=== PATIENT | female | born 1965 | race Caucasian/White ===

== ENCOUNTER 2018-01-15 13:11 | Emergency (ER) | payer MEDICARE, OTHER ==
[2018-01-15 13:33] VITALS: BP 149/86; PULSE 77; RESP 18; TEMP 97.9
--- NOTE | 2018-01-15 13:50 | ED ---
General Adult HPI - General Chief complaint: Extremity Injury, Lower Stated complaint: right foot pain Time Seen by Provider: 01/15/18 13:23 Source: patient, RN notes reviewed Mode of arrival: wheelchair Limitations: physical limitation - History of Present Illness Initial comments: Patient's a 52-year-old female presented to the emergency room today with a chief complaint of injury to the right foot that occurred 3 days ago. She says she was out doing yard work 3 days ago when she tripped or slipped. She states that she's had tenderness and pain to the ball of the right foot since that time. States it's worse with bearing weight and ambulation. Patient does admit to a burning sensation down into the toes. She denies any other complaints or symptoms. Patient denies any recent fever, chills, shortness of breath, chest pain, back pain, abdominal pain, nausea or vomiting, headaches or visual changes, or any other complaints. - Related Data Allergies Allergy/AdvReac Type Severity Reaction Status Date / Time aspirin Allergy Anaphylaxis Verified 01/15/18 13:35 ibuprofen Allergy Anaphylaxis Verified 01/15/18 13:35 pregabalin [From Lyrica] Allergy Anaphylaxis Verified 01/15/18 13:35 tramadol [From Ultram] Allergy Anaphylaxis Verified 01/15/18 13:35 amoxicillin [From Augmentin] AdvReac Nausea & Verified 01/15/18 13:35 Vomiting clavulanic acid AdvReac Nausea & Verified 01/15/18 13:35 [From Augmentin] Vomiting Review of Systems ROS Statement: Those systems with pertinent positive or pertinent negative responses have been documented in the HPI. ROS Other: All systems not noted in ROS Statement are negative. Past Medical History Past Medical History: No Reported History History of Any Multi-Drug Resistant Organisms: None Reported Past Surgical History: Back Surgery, Section, Hernia Repair, Hysterectomy, Orthopedic Surgery, Tubal Ligation Additional Past Surgical History / Comment(s): left knee, left foot, right shoulder, face reconstructions, tummy tuck, orbital surgery Past Psychological History: No Psychological Hx Reported, Anxiety Smoking Status: Current every day smoker Past Alcohol Use History: None Reported Past Drug Use History: None Reported General Exam - General Exam Comments Initial Comments: General: The patient is awake and alert, in no distress, and does not appear acutely ill. Eye: Pupils are equal, round and reactive to light. Extra-ocular movements are intact. No nystagmus. There is normal conjunctiva bilaterally. No signs of icterus. Ears, nose, mouth and throat: There are moist mucous membranes and no oral lesions. Neck: The neck is supple, there is no tenderness or JVD. Musculoskeletal: Normal appearance of the right foot no obvious deformity. Does have tenderness over the distal first through fifth metatarsals. Sensation intact. Strength 5/5. Pulses equal bilaterally 2+. Neurological: A&O x 3. CN II-XII intact, There are no obvious motor or sensory deficits. Coordination appears grossly intact. Speech is normal. Skin: Skin is warm and dry and no rashes or lesions are noted. Psychiatric: Cooperative, appropriate mood & affect, normal judgment. Limitations: physical limitation Course Vital Signs 01/15/18 13:26 Temperature 97.9 F Pulse Rate 77 Respiratory 18 Rate Blood Pressure 149/86 O2 Sat by Pulse 97 Oximetry Medical Decision Making - Medical Decision Making X-ray reviewed negative for any acute fracture dislocation. Results were discussed with patient. Patient's advised to ice elevate the affected area. Patient is advised follow-up with orthopedics if symptoms persist. Advised return for any other concerns. Disposition Clinical Impression: Foot sprain Disposition: HOME SELF-CARE Condition: Good Instructions: Foot Sprain (ED) Additional Instructions: Please continue to ice elevate the affected area at least 4 times a day for 20 minutes at a time. Please use Tylenol/ibuprofen for pain. Please follow-up in 7-10 days for repeat x-rays if symptoms persist. Please return to emergency room for any other concerns. Is patient prescribed a controlled substance at d/c from ED?: No Referrals: Suresh Pate DO [Primary Care Provider] - 1-2 days Femi Basurto MD [Medical Doctor] - 1-2 days Time of Disposition: 14:07
--- NOTE | 2018-01-15 13:56 | XR ---
EXAMINATION TYPE: XR foot complete RT , 3 VIEWS DATE OF EXAM ORDERED: 01/15/2018 HISTORY: Pain. COMPARISON: None. FINDINGS: Lucency projects over the distal aspect of the proximal phalanx of the right great toe. No cortical infraction is seen. No other fractures are seen. There is a plantar calcaneal spur. IMPRESSION: NO ACUTE OSSEOUS LESION.
== END 2018-01-15 14:18 | disposition home or self-care (01) ==
LOC: EC 13:11
DX: S93.601A Unspecified sprain of right foot, initial encounter (principal); F17.200 Nicotine dependence, unspecified, uncomplicated; Z88.6 Allergy status to analgesic agent; Z88.8 Allergy status to other drugs, medicaments and biological substances; Z88.0 Allergy status to penicillin; W01.0XXA Fall on same level from slipping, tripping and stumbling without subsequent striking against object, initial encounter; Y93.89 Activity, other specified; Y92.009 Unspecified place in unspecified non-institutional (private) residence as the place of occurrence of the external cause
CPT/HCPCS: 99283

== ENCOUNTER 2018-05-17 17:43 | Emergency (ER) | payer MEDICARE, OTHER ==
[2018-05-17 18:05] VITALS: RESP 18
--- NOTE | 2018-05-17 18:37 | ED ---
General Adult HPI - General Chief complaint: ENT Stated complaint: right ear pain Source: patient, RN notes reviewed Mode of arrival: ambulatory Limitations: no limitations - History of Present Illness Initial comments: Patient is a 53-year-old female who presents the emergency department with complaint of right ear pain for 2 weeks. She reports she has been using neomycin, polymyxin B, hydrocortisone otic drops for 4 days from her PCP without improvement. Patient denies any recent fever, chills, shortness of breath, chest pain, back pain, abdominal pain, nausea or vomiting, numbness or tingling, headaches or visual changes, or any other complaints. - Related Data Previous Rx's Medication Instructions Recorded Azithromycin [Zithromax Z-pack] 0 mg PO DIRECTED #6 tab 05/17/18 Ciprofloxacin-Hc Otic Susp [Cipro 3 drops RIGHT EAR BID 10 Days 05/17/18 Hc Otic Suspension] Allergies Allergy/AdvReac Type Severity Reaction Status Date / Time aspirin Allergy Anaphylaxis Verified 05/17/18 18:02 ibuprofen Allergy Anaphylaxis Verified 05/17/18 18:02 pregabalin [From Lyrica] Allergy Anaphylaxis Verified 05/17/18 18:02 tramadol [From Ultram] Allergy Anaphylaxis Verified 05/17/18 18:02 amoxicillin [From Augmentin] AdvReac Nausea & Verified 05/17/18 18:02 Vomiting clavulanic acid AdvReac Nausea & Verified 05/17/18 18:02 [From Augmentin] Vomiting Review of Systems ROS Statement: Those systems with pertinent positive or pertinent negative responses have been documented in the HPI. ROS Other: All systems not noted in ROS Statement are negative. Past Medical History Past Medical History: No Reported History History of Any Multi-Drug Resistant Organisms: None Reported Past Surgical History: Back Surgery, Section, Hernia Repair, Hysterectomy, Orthopedic Surgery, Tubal Ligation Additional Past Surgical History / Comment(s): left knee, left foot, right shoulder, face reconstructions, tummy tuck, orbital surgery Past Psychological History: Anxiety Smoking Status: Current every day smoker Past Alcohol Use History: None Reported Past Drug Use History: None Reported General Exam Limitations: no limitations General appearance: alert, in no apparent distress Head exam: Present: atraumatic, normocephalic Eye exam: Present: normal appearance, PERRL ENT exam: Present: normal oropharynx, other (Right external ear is swollen and tender to touch.) Respiratory exam: Present: normal lung sounds bilaterally. Absent: wheezes, rales, rhonchi Cardiovascular Exam: Present: regular rate, normal rhythm Neurological exam: Present: alert, oriented X3 Skin exam: Present: warm, dry Course Vital Signs 05/17/18 05/17/18 18:02 20:19 Temperature 98 F 97.3 F L Pulse Rate 93 79 Respiratory 18 18 Rate Blood Pressure 106/77 141/70 O2 Sat by Pulse 100 98 Oximetry Medical Decision Making - Medical Decision Making Will prescribe azithromycin and ciprofloxacin hydrocortisone otic drops. Case discussed in detail with attending physician Dr. Kelly. Disposition Clinical Impression: Otitis externa Disposition: HOME SELF-CARE Condition: Good Instructions (If sedation given, give patient instructions): Otitis Externa (ED ) Additional Instructions: Follow-up with your PCP in 1 to 2 days. Please take antibiotics as prescribed. Return to the emergency department if your symptoms worsen or other concerns. Prescriptions: Azithromycin [Zithromax Z-pack] 0 mg PO DIRECTED #6 tab Ciprofloxacin-Hc Otic Susp [Cipro Hc Otic Suspension] 3 drops RIGHT EAR BID 10 Days Is patient prescribed a controlled substance at d/c from ED?: No Referrals: Suresh Pate DO [Primary Care Provider] - 1-2 days Time of Disposition: 20:12
[2018-05-17 20:20] VITALS: BP 141/70; PULSE 79; TEMP 97.3
== END 2018-05-17 20:20 | disposition home or self-care (01) ==
LOC: EC 17:43
DX: H60.91 Unspecified otitis externa, right ear (principal); F17.200 Nicotine dependence, unspecified, uncomplicated; Z88.6 Allergy status to analgesic agent; Z88.8 Allergy status to other drugs, medicaments and biological substances; Z88.5 Allergy status to narcotic agent; Z88.0 Allergy status to penicillin
CPT/HCPCS: 99282

== ENCOUNTER 2021-10-31 16:25 | Emergency (ER) | payer MEDICARE, OTHER ==
[2021-10-31 16:43] VITALS: TEMP 98.1
--- NOTE | 2021-10-31 17:03 | XR ---
EXAMINATION TYPE: XR chest 2V DATE OF EXAM: 10/31/2021 4:54 PM COMPARISON: None TECHNIQUE: XR chest 2V Frontal and lateral views of the chest. CLINICAL INDICATION:Female, 56 years old with history of left sided rib pain; FINDINGS: Lungs/Pleura: There is no evidence of pleural effusion, focal consolidation, or pneumothorax. Pulmonary vascularity: Unremarkable. Heart/mediastinum: Cardiomediastinal silhouette is unremarkable. Musculoskeletal: No acute osseous pathology. Postsurgical changes with fixation plate involving the d istal right clavicle. IMPRESSION: No acute cardiopulmonary disease/process.
[2021-10-31] MEDS ORDERED: predniSONE 50 MG TAB PO STA (18:57)
[2021-10-31] MEDS ORDERED: LIDOCAINE 5% PATCH TOPICAL STA (18:57)
--- NOTE | 2021-10-31 19:10 | ED ---
General Adult HPI - General Chief complaint: Back Pain/Injury Stated complaint: Rib pain Time Seen by Provider: 10/31/21 18:29 Source: patient, RN notes reviewed Mode of arrival: ambulatory Limitations: no limitations - History of Present Illness Initial comments: 56-year-old female presents to the emergency department for evaluation of left- sided rib pain that extends from below the left breast to the left scapula. Patient states pain is worsened with deep breathing, coughing, movement of the upper extremities, and side-lying. Has mild right-sided rib/chest wall pain as well. Patient reports onset of ALLERGIES and coughing 3 weeks ago and associates the discomfort with this. States she takes morphine and/or Corona at home on a regular basis for chronic back pain. Has had no injury, trauma, or fall. No redness, rash, vesicles, or burning discomfort in painful area. Denies fever, chills, headache, dizziness, difficulty breathing, palpitations, racing heart, nausea, vomiting and abdominal pain, flank pain, dysuria, or hematuria. - Related Data Previous Rx's Medication Instructions Recorded Azithromycin [Zithromax Z-pack (6 0 mg PO DIRECTED #6 tab 05/17/18 tabs)] Ciprofloxacin-Hc Otic Susp [Cipro 3 drops RIGHT EAR BID 10 Days 05/17/18 Hc Otic Suspension] predniSONE 50 mg PO DAILY #4 tab 10/31/21 Allergies Allergy/AdvReac Type Severity Reaction Status Date / Time aspirin Allergy Anaphylaxis Verified 10/31/21 16:43 ibuprofen Allergy Anaphylaxis Verified 10/31/21 16:43 pregabalin [From Lyrica] Allergy Anaphylaxis Verified 10/31/21 16:43 tramadol [From Ultram] Allergy Anaphylaxis Verified 10/31/21 16:43 amoxicillin [From Augmentin] AdvReac Nausea & Verified 10/31/21 16:43 Vomiting clavulanic acid AdvReac Nausea & Verified 10/31/21 16:43 [From Augmentin] Vomiting Review of Systems ROS Statement: Those systems with pertinent positive or pertinent negative responses have been documented in the HPI. ROS Other: All systems not noted in ROS Statement are negative. Past Medical History Past Medical History: No Reported History History of Any Multi-Drug Resistant Organisms: None Reported Past Surgical History: Back Surgery, Section, Hernia Repair, Hysterectomy, Orthopedic Surgery, Tubal Ligation Additional Past Surgical History / Comment(s): left knee, left foot, right shoulder, face reconstructions, tummy tuck, orbital surgery Past Psychological History: Anxiety Smoking Status: Former smoker Past Alcohol Use History: None Reported Past Drug Use History: None Reported General Exam Limitations: no limitations General appearance: alert, in distress (Well-developed, well-nourished female in mild distress related to pain. Initial temperature 98.1, pulse 92, respirations 18, blood pressure 137/83, pulse ox 96% on room air.) ENT exam: Present: normal exam, normal oropharynx, mucous membranes moist Neck exam: Present: normal inspection, full ROM. Absent: tenderness, lymphadenopathy Respiratory exam: Present: normal lung sounds bilaterally, chest wall tenderness (Left anterior chest wall tenderness with gentle fingertip palpation at ribs 6-8 extending from inframammary fold extending back to the scapula. No crepitus, deformity, contusion, erythema, rash, or vesicles noted to the chest wall.), other (Symmetrical rise and fall of the chest). Absent: respiratory distress, wheezes, rales, rhonchi, stridor, accessory muscle use, decreased breath sounds, prolonged expiratory Cardiovascular Exam: Present: regular rate, normal rhythm, normal heart sounds. Absent: systolic murmur, diastolic murmur, rubs, gallop, clicks GI/Abdominal exam: Present: soft, normal bowel sounds. Absent: distended, tenderness, guarding, rebound, rigid Neurological exam: Present: alert, oriented X3 Psychiatric exam: Present: anxious Skin exam: Present: warm, dry, intact, normal color. Absent: rash Course Vital Signs 10/31/21 10/31/21 10/31/21 16:38 19:04 20:36 Temperature 98.1 F Pulse Rate 92 79 80 Respiratory 18 20 18 Rate Blood Pressure 137/83 149/96 136/86 O2 Sat by Pulse 96 96 99 Oximetry - Reevaluation(s) Reevaluation #1: 10/31/21 19:50 Upon reassessment, patient continues to complain of pain, feeling like the lidocaine patch has not been helpful. Discussed the likelihood that this is inflammatory, costochondritis, but that with anaphylactic ALLERGIES to NSAIDs does limit options for treatment. Medical Decision Making - Medical Decision Making This is a 56-year-old female with a history of chronic back pain who takes Corona and morphine daily presents to the emergency department for evaluation of left anterior chest wall pain that extends to the left scapula. Also has mild right sided rib pain. Upon exam, patient is well-appearing with moderate discomfort. Her pain is worsened with deep inspiration, movement of the extremities, and palpation of the chest wall. She does not have any concerning findings for cardiac or pulmonary etiologies. There is no erythema or rash. Chest x-ray was unremarkable. EKG shows normal sinus rhythm with no ectopy. Lidocaine patch applied with minimal change. Patient is given Dilaudid, Zofran, and prednisone with some improvement. She does have an anaphylactic ALLERGY to NSAIDs. She will be discharged home to continue her home medication regimen in addition to prednisone. Instructed to follow-up with her PCP for a recheck this week. Return parameters were discussed in detail. Patient verbalizes understanding and agrees with this plan. Attending: Oscar. - EKG Data EKG shows normal: sinus rhythm Rate: normal EKG Comments: EKG obtained at 1911 shows sinus rhythm with ventricular rate 76, [place] interval 173, QRS duration 86, QT/QTc 401/431. Interpretation normal ECG. - Radiology Data Radiology results: report reviewed, image reviewed Two-view chest x-ray was obtained. Report was reviewed in its entirety. Impression per Dr. Siddiqui is no acute cardiopulmonary disease/process. Disposition Clinical Impression: Costochondritis, acute Disposition: HOME SELF-CARE Condition: Stable Instructions (If sedation given, give patient instructions): Costochondritis (ED) Additional Instructions: Continue taking your home medications as prescribed. Remove lidocaine patch at 8 AM. Minimize exposure to irritants and allergens as able. Call your PCP on Tuesday to schedule a follow-up appointment. Return to the emergency department with any new, worsening, or concerning symptoms. Prescriptions: predniSONE 50 mg PO DAILY #4 tab Is patient prescribed a controlled substance at d/c from ED?: No Referrals: Suresh Pate DO [Primary Care Provider] - 1-2 days Time of Disposition: 20:02
[2021-10-31] MEDS ORDERED: ONDANSETRON ODT 4 MG TAB PO STA (19:55)
[2021-10-31] MEDS ORDERED: HYDROmorphone 1 MG/ML 1 ML SYRINGE IM STA (19:55)
[2021-10-31 20:37] VITALS: BP 136/86; PULSE 80; RESP 18
== END 2021-10-31 20:39 | disposition home or self-care (01) ==
LOC: EC 16:25
DX: M94.0 Chondrocostal junction syndrome [Tietze] (principal); Z87.891 Personal history of nicotine dependence; Z88.6 Allergy status to analgesic agent; Z88.8 Allergy status to other drugs, medicaments and biological substances; Z88.5 Allergy status to narcotic agent; Z88.0 Allergy status to penicillin
CPT/HCPCS: 93005; 71046; 99283; 96372; J1170; J7512

== ENCOUNTER 2021-11-14 13:51 | Emergency (ER) | payer MEDICARE, OTHER ==
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
--- NOTE | 2021-11-14 15:27 | XR ---
EXAMINATION TYPE: XR foot complete LT DATE OF EXAM: 11/14/2021 COMPARISON: NONE HISTORY: Foot pain TECHNIQUE: 3 views FINDINGS: Metatarsals are intact. The toes appear intact. There is some degenerative spurring in the mid foot with deformity of the navicular and osteosclerosis. There is a mild pes planus. There is sma ll plantar calcaneal spurring. There is previous surgery on the anterior aspect of the midfoot. IMPRESSION: No acute bony abnormality. 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 Navicular deformity.
[2021-11-14 15:59] VITALS: BP 130/78; PULSE 69; RESP 16; TEMP 98
== END 2021-11-14 15:59 | disposition home or self-care (01) ==
LOC: EC 13:51
DX: S90.32XA Contusion of left foot, initial encounter (principal); T74.11XA Adult physical abuse, confirmed, initial encounter; Z87.891 Personal history of nicotine dependence; Z88.6 Allergy status to analgesic agent; Z88.5 Allergy status to narcotic agent; Z88.8 Allergy status to other drugs, medicaments and biological substances; X58.XXXA Exposure to other specified factors, initial encounter; Y09 Assault by unspecified means
CPT/HCPCS: 70450; 71046; 72125

== ENCOUNTER 2022-06-27 20:22 | Emergency (ER) | payer MEDICARE, OTHER ==
[2022-06-27 20:37] VITALS: BP 124/82; PULSE 90; RESP 17; TEMP 98.7
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
[2022-06-27] MEDS ORDERED: MORPHINE SULFATE 4 MG/ML SYRINGE IM STA (21:19)
--- NOTE | 2022-06-27 21:24 | XR ---
EXAMINATION TYPE: XR ankle complete LT DATE OF EXAM: 06/27/2022 COMPARISON: NONE HISTORY: Pain TECHNIQUE: 3 view FINDINGS: Ankle mortise is anatomic. There is spurring at the talonavicular joint with deformity of t he navicular bone and anterior spurring. There is plantar calcaneal spurring. No fracture seen. 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 No evidence of ankle fracture.
--- NOTE | 2022-06-27 21:26 | XR ---
EXAMINATION TYPE: XR knee complete LT DATE OF EXAM: 06/27/2022 COMPARISON: NONE HISTORY: Pain TECHNIQUE: 3 views FINDINGS: There is no fracture nor dislocation. Joint spaces are normal. No sign of knee joint effusi on. IMPRESSION: Negative left knee exam. No fracture.
== END 2022-06-27 22:39 | disposition home or self-care (01) ==
LOC: EC 20:22
DX: S83.92XA Sprain of unspecified site of left knee, initial encounter (principal); F41.9 Anxiety disorder, unspecified; Z79.899 Other long term (current) drug therapy; Z87.891 Personal history of nicotine dependence; Z88.0 Allergy status to penicillin; Z88.1 Allergy status to other antibiotic agents; Z88.5 Allergy status to narcotic agent; Z88.6 Allergy status to analgesic agent; Z88.8 Allergy status to other drugs, medicaments and biological substances; W22.8XXA Striking against or struck by other objects, initial encounter
CPT/HCPCS: 73562; 73610; 99283; 96372; L1830 ×2; J2270

== ENCOUNTER 2023-10-22 12:11 | Emergency (ER) | payer OTHER ==
[2023-10-22 12:29] VITALS: TEMP 97.9
[2023-10-22] MEDS: HYDROmorphone 1 MG/ML 1 ML SYRINGE IM STA ×2 (12:55→13:01)
--- NOTE | 2023-10-22 12:57 | ED ---
Fall HPI - General Chief Complaint: Fall Stated Complaint: Fall-L arm injury Time Seen by Provider: 10/22/23 12:25 Source: patient, RN notes reviewed Mode of arrival: wheelchair Limitations: no limitations - History of Present Illness Initial Comments: 58-year-old female presents emergency department chief complaint of a fall. Patient states she was letting her dog out states that he turned around and became lightheaded and passed out. Patient dates that she this happened she just moved too quickly. She denies any chest pain but states that she does have some left-sided rib pain, upper back pain, left arm pain and states that she struck her head. Patient states this happened yesterday. She denies any other complaints other than pain currently. Denies any nausea vomiting no focal weakness. - Related Data Home Medications Medication Instructions Recorded Confirmed Butalb/APAP/Caff 50-325-40Mg 1 tab PO DAILY PRN 06/27/22 06/27/22 [Fioricet 50-325-40] Doxylamine Succinate [Unisom] 25 mg PO HS 06/27/22 06/27/22 Erenumab-Aooe [Aimovig 140 mg SQ QMONTHLY 06/27/22 06/27/22 Autoinjector] Gabapentin [Neurontin] 800 mg PO BID 06/27/22 06/27/22 HYDROcodone/APAP 10-325MG [[place] 1 tab PO BID PRN 06/27/22 06/27/22 10-325] Linaclotide [Linzess] 145 mcg PO DAILY 06/27/22 06/27/22 Melatonin 3 mg PO HS 06/27/22 06/27/22 Morphine Sulfate ER [Ms Contin] 15 mg PO BID PRN 06/27/22 06/27/22 SUMAtriptan succinate [Imitrex] 50 mg PO BID PRN 06/27/22 06/27/22 Sertraline [Zoloft] 100 mg PO DAILY 06/27/22 06/27/22 traZODone HCL 75 mg PO HS 06/27/22 06/27/22 Allergies Allergy/AdvReac Type Severity Reaction Status Date / Time aspirin Allergy Anaphylaxis Verified 10/22/23 12:28 ibuprofen Allergy Anaphylaxis Verified 10/22/23 12:28 pregabalin [From Lyrica] Allergy Anaphylaxis Verified 07/13/24 12:28 tramadol [From Ultram] Allergy Anaphylaxis Verified 10/22/23 12:28 amoxicillin [From Augmentin] AdvReac Nausea & Verified 10/22/23 12:28 Vomiting clavulanic acid AdvReac Nausea & Verified 10/22/23 12:28 [From Augmentin] Vomiting Review of Systems ROS Statement: Those systems with pertinent positive or pertinent negative responses have been documented in the HPI. ROS Other: All systems not noted in ROS Statement are negative. Past Medical History Past Medical History: No Reported History Additional Past Medical History / Comment(s): chronic back pain/shoulder History of Any Multi-Drug Resistant Organisms: None Reported Past Surgical History: Back Surgery, Section, Hernia Repair, Hysterectomy, Orthopedic Surgery, Tubal Ligation Additional Past Surgical History / Comment(s): left knee, left foot, right shoulder, face reconstructions, tummy tuck, orbital surgery Past Psychological History: Anxiety, PTSD Smoking Status: Vaper Past Alcohol Use History: None Reported Past Drug Use History: None Reported General Exam Limitations: no limitations General appearance: alert, in no apparent distress Head exam: Present: atraumatic, normocephalic, normal inspection Eye exam: Present: normal appearance, PERRL, EOMI. Absent: scleral icterus, conjunctival injection, periorbital swelling ENT exam: Present: normal exam, normal oropharynx, mucous membranes moist Neck exam: Present: normal inspection, full ROM. Absent: tenderness, meningismus, lymphadenopathy Respiratory exam: Present: normal lung sounds bilaterally. Absent: respiratory distress, wheezes, rales, rhonchi, stridor Cardiovascular Exam: Present: regular rate, normal rhythm, normal heart sounds. Absent: systolic murmur, diastolic murmur, rubs, gallop, clicks Extremities exam: Present: other (Left mid humerus ecchymosis, and tenderness diffusely from the shoulder to the elbow, bilateral foot tenderness) Back exam: Present: normal inspection, full ROM, tenderness, paraspinal tenderness, vertebral tenderness Neurological exam: Present: alert, oriented X3, CN II-XII intact, reflexes normal. Absent: motor sensory deficit Skin exam: Present: warm, dry, intact, normal color. Absent: rash Course Vital Signs 10/22/23 10/22/23 10/22/23 12:21 12:54 13:49 Temperature 97.9 F Pulse Rate 87 82 84 Respiratory 22 24 18 Rate Blood Pressure 150/86 146/122 136/112 O2 Sat by Pulse 97 100 97 Oximetry 10/22/23 14:45 Temperature Pulse Rate 71 Respiratory 18 Rate Blood Pressure 145/89 O2 Sat by Pulse 96 Oximetry Medical Decision Making - Medical Decision Making Was pt. sent in by a medical professional or institution (GENI Zavaleta, BRICK CLEANER, urgent care, hospital, or skilled nursing...) When possible be specific @ -No Did you speak to anyone other than the patient for history (EMS, parent, family, police, friend...)? What history was obtained from this source @ -No Did you review nursing and triage notes (agree or disagree)? Why? @ -I reviewed and agree with nursing and triage notes Were old charts reviewed (outside hosp., previous admission, EMS record, old EKG, old radiological studies, urgent care reports/EKG's, skilled nursing records)? Report findings @ -No old charts were reviewed Differential Diagnosis (chest pain, altered mental status, abdominal pain women, abdominal pain men, vaginal bleeding, weakness, fever, dyspnea, syncope, headache, dizziness, GI bleed, back pain, seizure, CVA, palpatations, mental health, musculoskeletal)? @ -Fall, hip contusion, leg fracture, head injury EKG interpreted by me (3pts min.). @ -None X-rays interpreted by me (1pt min.). @ -X-ray 2 view chest no acute process x-ray left humerus no acute fracture CT interpreted by me (1pt min.). @ -T brain, C-spine no acute intracranial hemorrhage, mass effect cervical fracture noted U/S interpreted by me (1pt. min.). @ -None done What testing was considered but not performed or refused? (CT, X-rays, U/S, labs)? Why? @ -None What meds were considered but not given or refused? Why? @ -None Did you discuss the management of the patient with other professionals (professionals i.e. GENI Zavaleta, BRICK CLEANER, lab, RT, psych nurse, high school social science teacher, draw string knotter, teacher, regulatory compliance officer, correctional casework specialist)? Give summary @ -No Was smoking cessation discussed for >3mins.? @ -No Was critical care preformed (if so, how long)? @ -No Were there social determinants of health that impacted care today? How? (Homelessness, low income, unemployed, alcoholism, drug addiction, transportation, low edu. Level, literacy, decrease access to med. care, residential, rehab)? @ -No Was there de-escalation of care discussed even if they declined (Discuss DNR or withdrawal of care, Hospice)? DNR status @ -No What co-morbidities impacted this encounter? (DM, HTN, Smoking, COPD, CAD, Cancer, CVA, ARF, Chemo, Hep., AIDS, mental health diagnosis, sleep apnea, morbid obesity)? @ -None Was patient admitted / discharged? Hospital course, mention meds given and route, prescriptions, significant lab abnormalities, going to OR and other pertinent info. @ -Discharge all imaging was negative. Patient presented after a fall with comp laints of pain patient discharged in stable condition she does take morphine at home. Undiagnosed new problem with uncertain prognosis? @ -No Drug Therapy requiring intensive monitoring for toxicity (Heparin, Nitro, Insulin, Cardizem)? @ -No Were any procedures done? @ -No Diagnosis/symptom? @ -Fall, closed head injury, arm contusion Acute, or Chronic, or Acute on Chronic? @ -Acute Uncomplicated (without systemic symptoms) or Complicated (systemic symptoms)? @ -uncomplicated Side effects of treatment? @ -No Exacerbation, Progression, or Severe Exacerbation? @ -No Poses a threat to life or bodily function? How? (Chest pain, [place], [place], pneumonia, PE, COPD, DKA, ARF, appy, cholecystitis, CVA, Diverticulitis, Homicidal, Suicidal, threat to staff... and all critical care pts) @ -No Disposition Clinical Impression: Fall, Contusion of arm, left, Back pain, Closed head injury Disposition: HOME SELF-CARE Condition: Stable Instructions (If sedation given, give patient instructions): Head Injury (ED) Additional Instructions: Please return to the Emergency Department if symptoms worsen or any other concerns. Is patient prescribed a controlled substance at d/c from ED?: No Referrals: Suresh Pate DO [Primary Care Provider] - 1-2 days Time of Disposition: 14:36
--- NOTE | 2023-10-22 13:42 | CT ---
EXAMINATION TYPE: CT brain cspine wo con CT DLP: 1446.1 mGycm, Automated exposure control for dose reduction was used. DATE OF EXAM: 10/22/2023 1:15 PM COMPARISON:. 11/14/2021. CLINICAL INDICATION:Female, 58 years old with history of pain; fall TECHNIQUE: Brain: Multiple axial CT images of the brain were obtained without IV contrast. Cspine: Axial CT images from the skull base to the inferior aspect of T2 we obtained without intraven ous contrast. Coronal and sagittal reformatted images were also reviewed. . FINDINGS: Brain: Extra-axial spaces: No abnormal extra-axial fluid collections. Ventricular system: Within normal limits Cerebral parenchyma: No acute intraparenchymal hemorrhage or mass effect. The adorno-white junction is well differentiated. Cerebellum: Unremarkable. Mass effect: No evidence of midline shift. Intracranial vasculature: unremarkable Soft tissues: Normal. Calvarium/osseous structures: No depressed skull fracture. Probable right lateral submillimeter calci fied meningioma. Paranasal sinuses and mastoid air cells: Clear. Visualized orbits: Orbital contents are intact. Cervical spine: Fracture: None. Osseous structures: Multilevel degenerative disc disease changes with endplate spurring and disc oste ophyte complex's. Vertebral alignment: Within normal limits. Spinal canal/Neural Foramina: No evidence of significant spinal canal narrowing. No evidence for sign ificant neural foraminal stenosis. Neck soft tissues: Prevertebral soft tissues are within normal limits. Other: The airway is patent. The lung apices are clear. IMPRESSION: 1. No acute intracranial process. 2. Right lateral skull calcified probable meningioma 3. No evidence of cervical spine fracture. 4. Mild multilevel degenerative disc disease.
--- NOTE | 2023-10-22 13:44 | XR ---
EXAMINATION TYPE: XR humerus LT DATE OF EXAM: 10/22/2023 1:27 PM CLINICAL INDICATION:Female, 58 years old with history of pain; [facility] COMPARISON: None TECHNIQUE: XR humerus LT examined in frontal and lateral projections. FINDINGS: No evidence of acute osseous pathology, joint dislocation, or soft tissue swelling. The rem aining portions of the visualized chest are unremarkable. Mild degeneration changes of the common cla vicular joint with osteophyte formation. Mild enthesophyte formation along the medial epicondyle of t he distal humerus. IMPRESSION: 1. No acute osseous pathology. 2. Mild left AC joint degeneration.
--- NOTE | 2023-10-22 13:45 | XR ---
EXAMINATION TYPE: XR chest 2V DATE OF EXAM: 10/22/2023 1:27 PM CLINICAL INDICATION:Female, 58 years old with history of pain; [facility] COMPARISON: Chest radiographs from 11/14/2021. TECHNIQUE: XR chest 2V Frontal view of the chest. FINDINGS: Lungs/Pleura: There is no evidence of pleural effusion, focal consolidation, or pneumothorax. Pulmonary vascularity: Unremarkable. Heart/mediastinum: Cardiomediastinal silhouette is unremarkable. Musculoskeletal: Multiple level degenerative disc disease changes seen throughout the spine. Right cl avicle fixation hardware appears intact. Mild left clavicle degeneration. Other findings: None IMPRESSION: No acute cardiopulmonary disease/process.
--- NOTE | 2023-10-22 13:50 | XR ---
EXAMINATION TYPE: XR foot complete bilateral DATE OF EXAM: 10/22/2023 1:27 PM CLINICAL INDICATION:Female, 58 years old with history of pain; [facility] COMPARISON: 11/14/2021. TECHNIQUE: XR foot complete bilateral examined in the AP, oblique, and lateral projections. FINDINGS: No evidence of any acute osseous pathology. No evidence of soft tissue swelling. Multifocal degenera tion changes throughout the joints of the foot with osteophyte formation and joint space narrowing. C alcaneal plantar spurring is present bilaterally. Calcaneal Achilles enthesophyte on the right. Simil ar abnormal appearance of the navicular bone with medial protuberance. Linear densities project over the dorsal foot near the navicular bone in the left foot. IMPRESSION: 1. No evidence of acute fracture bilaterally. 2. Moderate degeneration changes throughout the joints of the foot. 3. Similar bony protuberance medially of the navicular bone. 4. Linear densities projecting over the forearm and lateral view similar to 2021 possibly postsurgic al and/or radiopaque foreign bodies.
[2023-10-22 13:51] VITALS: RESP 18
[2023-10-22] MEDS: CYCLOBENZAPRINE 10MG STARTER 3 TAB BTL PO STA (14:40)
[2023-10-22 14:53] VITALS: BP 145/89; PULSE 71
== END 2023-10-22 14:49 | disposition home or self-care (01) ==
LOC: EC 12:11
DX: S40.022A Contusion of left upper arm, initial encounter (principal); S09.90XA Unspecified injury of head, initial encounter; M54.6 Pain in thoracic spine; M79.672 Pain in left foot; M79.671 Pain in right foot; F17.290 Nicotine dependence, other tobacco product, uncomplicated; Z88.0 Allergy status to penicillin; Z88.1 Allergy status to other antibiotic agents; Z88.5 Allergy status to narcotic agent; Z88.6 Allergy status to analgesic agent; W18.30XA Fall on same level, unspecified, initial encounter
CPT/HCPCS: 99284; 96372; 73630; 73060; 71046; 72125; 70450; J1170